=== PATIENT | female | born 1995 | race Caucasian/White ===

== ENCOUNTER 2018-11-19 04:05 | Inpatient (IN) | payer SELFPAY ==
[~2018-11-19] VITALS: Ht 164 cm; Wt 79.8 kg
[2018-11-19 04:47] VITALS: BP 117/70
[2018-11-19] MEDS ORDERED: PREN1TAB80 PO (04:49)
[2018-11-19] MEDS ORDERED: OXYTOCIN 30 UNITS/LACT RINGERS 500 ML IV ONE ×2 (05:12→17:35)
[2018-11-19] MEDS ORDERED: RINGERS SOLUTION,LACTATED 1,000 ML IV PRN (05:12)
[2018-11-19 05:14] LABS: GLUCOMETER DEV NAME(LOC) 4S.; GLUCOSE,POINT OF CARE 90 MG/DL (70-110)
[2018-11-19] MEDS ORDERED: CITRIC ACID/SODIUM CITRATE 30 ML SOLUTION UDCUP PO PRN (05:15)
[2018-11-19] MEDS ORDERED: AMPICILLIN SODIUM 2 GM/NS 100 ML IV ONE (05:15)
[2018-11-19] MEDS ORDERED: METOCLOPRAMIDE HCL 5 MG/ML 2 ML VIAL IVP PRN (05:15)
[2018-11-19] MEDS ORDERED: FentaNYL CITRATE-PF 100 MCG/2 ML VIAL IVP PRN (05:15)
[2018-11-19 05:40] VITALS: BP 117/70
[2018-11-19] MEDS: RINGERS SOLUTION,LACTATED 1,000 ML IV SCH ×2 (05:49→09:59)
[2018-11-19 06:08] LABS: BASOPHILS % (AUTO) 0.4 % (0.0-2.0); EOSINOPHILS % (AUTO) 0.4 % (1.0-6.0); HEMATOCRIT 35.3 % (36-46); HEMOGLOBIN 11.8 g/dL (12.0-16.0); LYMPHOCYTES # (AUTO) 1.5 K/uL (1.0-4.8); LYMPHOCYTES % (AUTO) 13.5 % (22.0-44.0); MEAN CORPUSCULAR HEMOGLOBIN 30.6 pg (26.0-34.0); MEAN CORPUSCULAR HGB CONC 33.5 G/dL (31.0-37.0); MEAN CORPUSCULAR VOLUME 92 fL (80-100); MONOCYTES # (AUTO) 0.8 K/uL (0.1-1.0); MONOCYTES % (AUTO) 7.4 % (2.0-9.0); NEUTROPHILS # (AUTO) 8.6 K/uL (1.8-7.7); NEUTROPHILS % (AUTO) 78.3 % (40.0-70.0); PLATELET COUNT (AUTO)-OB 391 K/uL (150-450); RED BLOOD CELL COUNT(AUTO) 3.86 MIL/uL (4.00-5.20); RED CELL DISTRIBUTION WIDTH 13.8 % (11.5-14.5)
[2018-11-19] MEDS ORDERED: ROPIVACAINE HCL/PF 0.2% 100 ML ED ONE (07:16)
[2018-11-19] MEDS ORDERED: LIDOCAINE/PF 2% 5 ML VIAL ONE (07:16)
[2018-11-19] MEDS ORDERED: DiphenhydrAMINE HCL 50 MG/ML VIAL IVP PRN (08:00)
[2018-11-19] MEDS ORDERED: NALBUPHINE HCL 10 MG/ML VIAL IVP PRN (08:00)
[2018-11-19] MEDS ORDERED: ROPIVACAINE HCL/PF 0.2% 100 ML ED PRN (08:00)
[2018-11-19] MEDS ORDERED: ONDANSETRON HCL 4 MG/2 ML VIAL IVP PRN (08:00)
[2018-11-19] MEDS ORDERED: OXYGEN THERAPY IH SCH (08:00)
[2018-11-19] MEDS ORDERED: OXYTOCIN 30 UNITS/LACT RINGERS 500 ML IV PRN (08:58)
[2018-11-19] MEDS ORDERED: AMPICILLIN SODIUM 1 GM/NS 50 ML IV SCH (09:15)
[2018-11-19 09:21] LABS: AMPHET/METH SCREEN,URINE NEGATIVE (NEGATIVE); BARBITURATE SCREEN, URINE NEGATIVE (NEGATIVE); BENZODIAZEPINES SCREEN,URINE NEGATIVE (NEGATIVE); CANNABINOID SCREEN,URINE NEGATIVE (NEGATIVE); COCAINE SCREEN,URINE NEGATIVE (NEGATIVE); METHADONE SCREEN, URINE NEGATIVE (NEGATIVE); OPIATE SCREEN,URINE NEGATIVE (NEGATIVE); PHENCYCLIDINE SCREEN,URINE NEGATIVE (NEGATIVE)
[2018-11-19 09:50] LABS: APPEARANCE,URINE CLEAR (CLEAR); BILIRUBIN,URINE NEGATIVE (NEGATIVE); GLUCOSE, URINE (UA) NEGATIVE (NEGATIVE); KETONES,URINE NEGATIVE (NEGATIVE); LEUKOCYTE ESTERASE ,URINE NEGATIVE (NEGATIVE); NITRATE,URINE NEGATIVE (NEGATIVE); OCCULT BLOOD,URINE NEGATIVE (NEGATIVE); PH,URINE 7.5 (5.0-8.0); PROTEIN,URINE NEGATIVE (NEGATIVE); UROBILINOGEN,URINE 0.2 mg/dL (<=1.0)
[2018-11-19] MEDS ORDERED: BENZOCAINE 20%/MENTHOL 56 GM SPRAY CANISTER TP PRN (17:45)
[2018-11-19] MEDS ORDERED: LIDOCAINE/PF 1% 30 ML VIAL INJ PRN (17:45)
[2018-11-19] MEDS ORDERED: OxyCODONE HCL/ACETAMINOPHEN 5-325 MG TABLET PO PRN ×2 (17:45)
[2018-11-19] MEDS ORDERED: LANOLIN 7 GM OINTMENT TP PRN (17:45)
[2018-11-19] MEDS ORDERED: GLYCERIN/WITCH HAZEL LEAF 40 PADS JAR TP PRN (17:45)
[2018-11-19] MEDS: IBUPROFEN 800 MG TABLET PO PRN (19:47)
[2018-11-19 20:00] LABS: RUBELLA SCREEN (IGG) IMMUNE (IMMUNE)
[2018-11-19] MEDS: MAGNESIUM HYDROXIDE SUSPENSION 30 ML UDCUP PO PRN (22:20)
[2018-11-20] MEDS: IBUPROFEN 800 MG TABLET PO PRN (04:14)
[2018-11-20 06:38] LABS: BASOPHILS % (AUTO) 0.4 % (0.0-2.0); EOSINOPHILS % (AUTO) 0.6 % (1.0-6.0); HEMATOCRIT 30.3 % (36-46); HEMOGLOBIN 10.5 g/dL (12.0-16.0); LYMPHOCYTES % (AUTO) 14.7 % (22.0-44.0); MEAN CORPUSCULAR HEMOGLOBIN 31.6 pg (26.0-34.0); MEAN CORPUSCULAR HGB CONC 34.7 G/dL (31.0-37.0); MEAN CORPUSCULAR VOLUME 91 fL (80-100); MONOCYTES # (AUTO) 1.2 K/uL (0.1-1.0); MONOCYTES % (AUTO) 9.4 % (2.0-9.0); NEUTROPHILS # (AUTO) 9.9 K/uL (1.8-7.7); NEUTROPHILS % (AUTO) 74.9 % (40.0-70.0); PLATELET COUNT (AUTO)-OB 323 K/uL (150-450); RED BLOOD CELL COUNT(AUTO) 3.33 MIL/uL (4.00-5.20)
[2018-11-20] MEDS: MAGNESIUM HYDROXIDE SUSPENSION 30 ML UDCUP PO PRN (08:24)
[2018-11-20] MEDS ORDERED: IBUP-2071 PO (13:06)
[2018-11-20] MEDS ORDERED: DSS100 PO (13:07)
[2018-11-20] MEDS ORDERED: FERR-89 PO (13:07)
== END 2018-11-20 14:45 | disposition home or self-care (01) | DRG 807 ==
LOC: 4S 04:05 → OBSVTOIN 04:05
PROVIDERS: ADMIT Obstetrics & Gynecology; ATTEND Obstetrics & Gynecology
PROC: 10E0XZZ Delivery of Products of Conception, External Approach (ICD-10-PCS; principal; 2018-11-19)
PROC: 0KQM0ZZ Repair Perineum Muscle, Open Approach (ICD-10-PCS; 2018-11-19)
PROC: 3E0R3BZ Introduction of Anesthetic Agent into Spinal Canal, Percutaneous Approach (ICD-10-PCS; 2018-11-19)
PROC: 00HU33Z Insertion of Infusion Device into Spinal Canal, Percutaneous Approach (ICD-10-PCS; 2018-11-19)
DX: O70.1 Second degree perineal laceration during delivery (principal); Z37.0 Single live birth; Z3A.38 38 weeks gestation of pregnancy
CPT/HCPCS: 80307; 86592; 86762; 86850; 86900; 86901; 87340; J0290; J2590; J2795; J3490; J7120